=== PATIENT | female | born 1975 | race Two or more races ===

== ENCOUNTER 2019-05-14 14:50 | Emergency (ER) | payer OTHER ==
[~2019-05-14] VITALS: Ht 167.6 cm; Wt 71.2 kg
[2019-05-14] MEDS ORDERED: MULTIVITAMINAS (15:44)
[2019-05-14] MEDS ORDERED: CIPRO500 MG PO (16:38)
== END 2019-05-14 17:13 | disposition home or self-care (01) ==
LOC: ER 14:50
DX: S61.451A Open bite of right hand, initial encounter (principal); W55.01XA Bitten by cat, initial encounter; Y93.89 Activity, other specified; Y92.018 Other place in single-family (private) house as the place of occurrence of the external cause; Y99.8 Other external cause status